=== PATIENT | male | born 1950 | race Caucasian/White ===

== ENCOUNTER → 2023-12-17 14:03 | Outpatient (REF) | payer MEDICARE, OTHER, SELFPAY | LOC: HWRAD 14:03 | PROVIDERS: ATTENDING PHYSICIAN Family Medicine | DX: J40 Bronchitis, not specified as acute or chronic (principal) | CPT/HCPCS: 71046 ==

== ENCOUNTER → 2025-01-02 09:27 | Outpatient (REF) | payer MEDICARE, OTHER, SELFPAY | LOC: HWRCS 09:27 | PROVIDERS: ATTENDING PHYSICIAN Internal Medicine Cardiovascular Disease; FAMILY PHYSICIAN Family Medicine | DX: I48.0 Paroxysmal atrial fibrillation (principal) | CPT/HCPCS: 93306 ==

== ENCOUNTER 2025-01-19 08:13 | Emergency (ER) | payer MEDICARE, OTHER, SELFPAY ==
[2025-01-19 08:14] VITALS: BP 134/81
--- NOTE | 2025-01-19 08:36 | ED.GENMED ---
History of Present Illness
<Hal Frances MD - Last Filed: 01/19/25 09:19>
General
Chief Complaint: Abdominal Pain
Source: patient
Exam Limitations: none
Time Seen by Provider: 01/19/25 08:22
Nursing documentation reviewed up to this point in time: agreed with
History of Present Illness
History of Present Illness:
Patient with history of paroxysmal atrial fibrillation on Eliquis and diabetes on Jardiance, currently taking Mounjaro for weight control, presents to ED secondary to sudden onset of right-sided abdominal pain over the past 4 days, partially
relieved when taking Advil. Denies fever or chills. Abdominal pain described as sharp, nonradiating, without nausea, vomiting, or diarrhea. Denies recent change in medications or diet. Denies trauma. Denies back pain. Denies difficulty with
urination. Denies recent change in activities. Denies sick contact. Denies change in bowel habits. Denies previous history of similar symptoms. Patient does have history of kidney stones, but states that his symptoms are different.
Past History
<Hal Frances MD - Last Filed: 01/19/25 09:19>
Past History
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
Social History
Tobacco: Non-smoker
Alcohol: Occasional
Personal:
Living: with family
Employment: Employed
Review of Systems
<Hal Frances MD - Last Filed: 01/19/25 09:19>
Review of Systems
Allergies reviewed?: Yes
All Other Systems: ROS reviewed and negative except as documented in HPI and ROS
Constitutional: Reports no symptoms; Denies fever
ABD/GI: Reports abdominal pain; Denies nausea, vomiting or diarrhea
Musculoskeletal: Reports no symptoms
Skin: Reports no symptoms
Neurological: Reports no symptoms
Phy Exam
<Hal Frances MD - Last Filed: 01/19/25 09:19>
Physical Exam
Physical Exam:
Physical Exam
General: mild distress, not acutely ill. afebrile
Head: nc/at. eomi
Neck: supple. no meningeal signs.
Heart: s1/s2 regular rate and rhythm
Lungs: no acute respiratory distress. clear bilaterally
Abdomen: normal bowel sounds. not tender. mild RUQ tenderness to palpation
Neuro: alert and oriented x 3. no focal neurological deficits
Skin: no rash
Psychiatric: well kept. interactive and cooperative
Extremities: no edema. no calf tenderness.
Course
<Hal Frances MD - Last Filed: 01/19/25 09:19>
Orders/Labs/Results
Orders:
Orders
01/19/25 08:35
Pantoprazole [Protonix IV] 40 mg IV NOW STA
01/19/25 08:39
US Abdomen Complete/Upper Urgent
Comment:
Reason For Exam: RUQ pain
01/19/25 09:01
Complete Blood Count/With Diff Urgent
Comprehensive Metabolic Panel Urgent
Lactate Level [Lactic Acid] Urgent
Lipase Urgent
01/19/25 11:43
Urinalysis Reflex To Culture Urgent
Date Specimen was Collected: 01/19/25
Time Specimen was Collected: 11:42
01/19/25 12:21
CT Abd/pelvis W Iv Cont Urgent
Comment:
Reason For Exam: right sided abdominal pain
Abnormal Lab Results
01/19/25 01/19/25
09:01 11:43
MCH 32.0 H pg
(27.0-31.0)
Plt Count 114 L 10^3/uL
(130-400)
Absolute Lymphs (auto) 1.1 L 10^3/uL
(1.2-3.4)
Lymphocytes % 19.8 L %
(20.5-51.1)
Monocytes % 10.9 H %
(1.7-9.3)
Chloride 108 H mmol/L
(98-107)
Glucose 106 H mg/dl
(70-99)
Calcium 8.3 L mg/dl
(8.4-10.2)
Albumin 3.0 L g/dl
(3.5-5.0)
Urine Glucose 4+ A
(Negative)
01/19/25 09:01
01/19/25 09:01
Vital Signs
Initial and Last Documented VS:
Initial Vital Signs
Temp Pulse Resp BP Pulse Ox
97.8 F 81 18 134/81 97
01/19/25 08:14 01/19/25 08:14 01/19/25 08:14 01/19/25 08:14 01/19/25 08:14
Last Documented Vital Signs
Temp Pulse Resp BP Pulse Ox
97.8 F 69 16 136/80 97
01/19/25 08:14 01/19/25 15:19 01/19/25 15:19 01/19/25 15:19 01/19/25 15:19
<Maya Carmichael MD - Last Filed: 01/19/25 15:54>
Orders/Labs/Results
Orders:
Orders
01/19/25 08:35
Pantoprazole [Protonix IV] 40 mg IV NOW STA
01/19/25 08:39
US Abdomen Complete/Upper Urgent
Comment:
Reason For Exam: RUQ pain
01/19/25 09:01
Complete Blood Count/With Diff Urgent
Comprehensive Metabolic Panel Urgent
Lactate Level [Lactic Acid] Urgent
Lipase Urgent
01/19/25 11:43
Urinalysis Reflex To Culture Urgent
Date Specimen was Collected: 01/19/25
Time Specimen was Collected: 11:42
01/19/25 12:21
CT Abd/pelvis W Iv Cont Urgent
Comment:
Reason For Exam: right sided abdominal pain
Abnormal Lab Results
01/19/25 01/19/25
09:01 11:43
MCH 32.0 H pg
(27.0-31.0)
Plt Count 114 L 10^3/uL
(130-400)
Absolute Lymphs (auto) 1.1 L 10^3/uL
(1.2-3.4)
Lymphocytes % 19.8 L %
(20.5-51.1)
Monocytes % 10.9 H %
(1.7-9.3)
Chloride 108 H mmol/L
(98-107)
Glucose 106 H mg/dl
(70-99)
Calcium 8.3 L mg/dl
(8.4-10.2)
Albumin 3.0 L g/dl
(3.5-5.0)
Urine Glucose 4+ A
(Negative)
01/19/25 09:01
01/19/25 09:01
Vital Signs
Initial and Last Documented VS:
Initial Vital Signs
Temp Pulse Resp BP Pulse Ox
97.8 F 81 18 134/81 97
01/19/25 08:14 01/19/25 08:14 01/19/25 08:14 01/19/25 08:14 01/19/25 08:14
Last Documented Vital Signs
Temp Pulse Resp BP Pulse Ox
97.8 F 69 16 136/80 97
01/19/25 08:14 01/19/25 15:19 01/19/25 15:19 01/19/25 15:19 01/19/25 15:19
<Hal Frances MD - Last Filed: 01/19/25 09:19>
MDM/Problems Addressed
MDM/Problems Addressed:
Thrombocytopenia noted, appears to be chronic.
<Maya Carmichael MD - Last Filed: 01/19/25 15:54>
*Radiology
Radiology exam reviewed: radiology read reviewed
*Critical Care Note
Total Time (30-74mins, 75-104mins- exclusive of procedures): Not Applicable
<Maya Carmichael MD - Last Filed: 01/19/25 15:54>
Update Note
Update Note:
Patient appears well and comfortable. Urine looks negative. There is no sign of pyelonephritis. CAT scan shows no emergent surgical issue. CAT scan does show an abnormality of the liver, and lung that require follow-up. I did explain this to
the patient. I did explain to the patient that he must show his CAT scan report and see his primary care doctor within 1 week for further imaging studies
ED Attending Note
<Hal Frances MD - Last Filed: 01/19/25 09:19>
-
Portions of this chart may have been created with voice recognition software.� Occasional wrong word or��sound alike� substitutions may have occurred due to the inherent limitations of voice recognition software.
Discharge Plan
Departure
Patient Disposition: Home (Routine Discharge)
Date of Disposition: 01/19/25
Time of Disposition: 15:51
Patient with high blood pressure during this ER visit?: Yes
Condition: Good
Covid-19: Not Applicable
Discharge Problem:
Acute right flank pain
Instructions: Flank pain - ED discharge instructions, BLOOD PRESSURE
Prescriptions:
No Action
esomeprazole magnesium [Nexium] 40 MG capsule,delayed release(DR/EC)
40 mg PO DAILY
rosuvastatin 5 MG tablet
5 mg PO DAILY
furosemide 40 MG tablet
60 mg PO DAILY
metformin 500 MG tablet
500 mg PO QID
oxybutynin chloride 15 MG tablet extended release 24hr
15 mg PO DAILY
gabapentin 400 MG capsule
400 - 800 mg PO BID
sildenafil [Viagra] 100 MG tablet
100 mg PO PRN PRN (Reason: intercourse)
glipizide 2.5 MG tablet extended release 24hr
5 mg PO DAILY
naproxen sodium [Aleve] 220 MG tablet
200 mg PO BID
metoprolol succinate 25 MG tablet extended release 24 hr
25 mg PO DAILY
cholecalciferol (vitamin D3) [Vitamin D3] 400 UNITS tablet
2,000 units PO DAILY
insulin detemir U-100 [Levemir U-100 Insulin] 1,000 UNITS/10 ML solution
80 units SC DAILY
apixaban [Eliquis] 5 MG tablet
5 mg PO BID
empagliflozin [Jardiance] 10 MG tablet
10 mg PO DAILY
amlodipine-valsartan [Exforge] 1 EACH tablet
1 tab PO DAILY
Referrals:
Jf Garces, [Family Provider] -
Activity Restrictions/Additional Instructions:
It is extremely important that you call and make an appointment to see Dr. Garces within 1 week. Please show him your CAT scan report and lab work. He needs to order more imaging study on your lungs and abdomen.
Interventions
Interventions:
*Risk Screen - Suicide Last Done: 01/19/25 08:14
*General Assessment Last Done: 01/19/25 08:14
*Neglect/Abuse Screening Last Done: 01/19/25 08:14
*ED- Fall Risk Assessment Last Done: 01/19/25 08:50
*ED COVID-19 Vaccine History Last Done: 01/19/25 08:50
AC-Ujomaq-Pmtfdkgndi Assessment Last Done: 01/19/25 08:50
Discharge Date and Time
Print Language: DANISH
[2025-01-19 08:50] VITALS: BMI 37.5
[2025-01-19 09:16] LABS: % Basophils 0.5 % (0-2); % Eosinophils 1.1 % (0-6); % Immature Granulocytes 0.2 % (0-0.5); % Lymphocytes 19.8 % (20.5-51.1); % Monocytes 10.9 % (1.7-9.3); % Neutrophils 67.5 % (42.2-75.2); Absolute Eosinophils 0.1 10^3/uL (0-0.7); Absolute Lymphocytes 1.1 10^3/uL (1.2-3.4); Absolute Monocytes 0.6 10^3/uL (0.1-0.6); Absolute Neutrophils 3.7 10^3/uL (1.4-6.5); Hematocrit 44.9 % (39.0-52.0); Hemoglobin 15.4 g/dL (13.0-18.0); Mean Corp Hgb Conc. 34.3 g/dL (33.0-37.0); Mean Corpuscular Volume 93.2 fL (80.0-94.0); Mean Platelet Volume 9.8 fL (7.4-10.4); Nucleated Red Blood Cells % 0 % (-); Platelet Count 114 10^3/uL (130-400); Red Blood Cell Count 4.82 10^6/uL (4.70-6.10); Red Cell Dist. Width 13.9 % (11.5-14.5); White Blood Cell Count 5.5 10^3/uL (4.8-10.8)
[2025-01-19 09:20] LABS: Lactic Acid 0.8 mmol/L (0.7-2.0)
[2025-01-19 09:28] LABS: ALT (SGPT) 30 U/L (0-50); AST (SGOT) 37 U/L (17-59); Alkaline Phosphatase 106 U/L (38-126); Blood Urea Nitrogen 18 mg/dl (9-20); Calcium 8.3 mg/dl (8.4-10.2); Carbon Dioxide 30 mmol/L (22-30); Chloride 108 mmol/L (98-107); Estimated Creatinine Clearance 107 ml/min; Glucose 106 mg/dl (70-99); Lipase 51 U/L (23-300); Sodium 142 mmol/L (135-145); Total Bilirubin 1.3 mg/dl (0.2-1.3); Total Protein 6.5 g/dl (6.3-8.2); eGFR > 60.00
[2025-01-19] MEDS: PROTONIX IV 40 MG IV (10:03)
[2025-01-19 10:27] VITALS: BP 137/88
[2025-01-19 11:54] LABS: Urine Albumin Negative (Neg - Trace); Urine Bilirubin Negative (Negative); Urine Character Clear (Clear); Urine Color Yellow; Urine Glucose 4+ (Negative); Urine Ketone Negative (Negative); Urine Leukocyte Negative (Negative); Urine Nitrite Negative (Negative); Urine Occult Blood Negative (Negative); Urine Urobilinogen Negative (Neg - 1+)
[2025-01-19 15:19] VITALS: BP 136/80
[2025-01-19 16:09] VITALS: BP 120/77
== END 2025-01-19 16:48 | disposition home or self-care (01) ==
LOC: EMR 08:13
PROVIDERS: EMERGENCY PHYSICIAN Emergency Medicine; FAMILY PHYSICIAN Family Medicine
DX: R10.9 Unspecified abdominal pain (principal); D69.6 Thrombocytopenia, unspecified; R91.8 Other nonspecific abnormal finding of lung field; R93.2 Abnormal findings on diagnostic imaging of liver and biliary tract; I48.0 Paroxysmal atrial fibrillation; E11.9 Type 2 diabetes mellitus without complications; I10 Essential (primary) hypertension; E78.00 Pure hypercholesterolemia, unspecified; Z79.01 Long term (current) use of anticoagulants; Z79.84 Long term (current) use of oral hypoglycemic drugs; Z87.442 Personal history of urinary calculi
CPT/HCPCS: 96374; 99284; 74177; 76700; 80053; 81003; 83605; 83690; 85025; Q9967

== ENCOUNTER → 2025-02-21 08:36 | Outpatient (REF) | payer MEDICARE, OTHER, SELFPAY | LOC: HWRAD 08:36 | PROVIDERS: ATTENDING PHYSICIAN Family Medicine | DX: R91.1 Solitary pulmonary nodule (principal); M89.8X8 Other specified disorders of bone, other site | CPT/HCPCS: 71120; 71250 ==

== ENCOUNTER → 2025-03-08 07:41 | Outpatient (REF) | payer MEDICARE, OTHER, SELFPAY | LOC: PET 07:41 | PROVIDERS: ATTENDING PHYSICIAN Internal Medicine Critical Care Medicine | DX: R91.1 Solitary pulmonary nodule (principal) | CPT/HCPCS: 78815; A9552 ==

== ENCOUNTER 2025-03-14 07:00 | Outpatient (REF) | payer MEDICARE, OTHER, SELFPAY ==
[2025-03-14] VITALS (8 sets, daily range): BP systolic 78–137; BP diastolic 51–88
[2025-03-14 07:44] LABS: INR 1.27; PT 16.1 Sec (11.4-14.6)
== END 2025-03-14 11:22 | disposition home or self-care (01) ==
LOC: RADI 07:00
PROVIDERS: ATTENDING PHYSICIAN Internal Medicine Critical Care Medicine; FAMILY PHYSICIAN Family Medicine; REFERRING PHYSICIAN Physician Assistant
DX: C78.01 Secondary malignant neoplasm of right lung (principal); C22.0 Liver cell carcinoma; D68.8 Other specified coagulation defects; Z85.51 Personal history of malignant neoplasm of bladder
CPT/HCPCS: 32408; 36415; 71045; 85610; 88305; 88313; 88333; 99152; C2613

== ENCOUNTER → 2025-03-17 17:49 | Outpatient (REF) | payer MEDICARE, OTHER, SELFPAY | LOC: MRI 3T 17:49 | PROVIDERS: ATTENDING PHYSICIAN Family Medicine | DX: R19.04 Left lower quadrant abdominal swelling, mass and lump (principal) | CPT/HCPCS: 74183; A9575 ==